=== PATIENT | male | born 1995 | race Caucasian/White ===

== ENCOUNTER 2018-06-30 20:37 | Emergency (ER) | payer OTHER ==
[2018-06-30] MEDS ORDERED: ACETAMINOPHEN TAB 500 MG TAB PO STA (21:55)
[2018-06-30] MEDS ORDERED: predniSONE 20 MG TAB PO STA (21:55)
[2018-06-30 22:24] LABS: Basophils # (A) 0.1 k/uL (0-0.2); Basophils % (A) 1 %; Eosinophils # (A) 0.1 k/uL (0-0.7); Eosinophils % (A) 1 %; HCT 48.1 % (39.0-53.0); HGB 16.5 gm/dL (13.0-17.5); Lymphocytes # (A) 1.7 k/uL (1.0-4.8); Lymphocytes % (A) 13 %; MCH 30.4 pg (25.0-35.0); MCHC 34.3 g/dL (31.0-37.0); MCV 88.6 fL (80.0-100.0); Mean Platelet Volume 8.9; Monocytes # (A) 0.6 k/uL (0-1.0); Monocytes % (A) 5 %; Neutrophils # (A) 10.3 k/uL (1.3-7.7); Neutrophils % (A) 80 %; Platelet Count 211 k/uL (150-450); RBC 5.43 m/uL (4.30-5.90); RDW 11.7 % (11.5-15.5); WBC 12.9 k/uL (3.8-10.6)
[2018-06-30 22:38] LABS: ALT 20 U/L (21-72); AST 20 U/L (17-59); Alkaline Phosphatase 84 U/L (38-126); Anion Gap 13 mmol/L; Blood Urea Nitrogen 15 mg/dL (9-20); Carbon Dioxide 23 mmol/L (22-30); Chloride 105 mmol/L (98-107); Glucose 91 mg/dL (74-99); Potassium 4.2 mmol/L (3.5-5.1); Sodium 141 mmol/L (137-145); Total Bilirubin 1.2 mg/dL (0.2-1.3); Total Protein 8.3 g/dL (6.3-8.2)
--- NOTE | 2018-06-30 22:42 | ED ---
General Adult HPI - General Source: patient, RN notes reviewed Mode of arrival: ambulatory Limitations: no limitations <Alda Malcolm - Last Filed: 07/01/18 00:13> <Gwen Posey - Last Filed: 07/02/18 05:03> - General Chief complaint: Skin/Abscess/Foreign Body Stated complaint: poss allergic reaction Time Seen by Provider: 06/30/18 21:38 - History of Present Illness Initial comments: This is a 22yo male with no PMH who presents today for cc of sore throat x3days and rashx1 . Pt states that 3 days ago he began to notice a sore throat and body aches, he thought it felt similar to when he had strep throat in the past. Yesterday he then began to notice a red rash on this arms, legs, trunk and back. It was rough to the touch, no puritus. Pt denies eating new foods, or beginning a new medication. Pt looked online and thought that he may have scarlet fever so he presented to the emergency department. [facility]. Denies fever, changes in urine color, chest pain, shortness of breath, nodules of the skin, joint pain, headache, nausea, vomiting, diarrhea, recent STD or penile lesion, lesions of the hands or feet or any other symptoms. Remainder of ROS (-). Upon arrival pt VS stable, afebrile. (Alda Malcolm) - Related Data Previous Rx's Medication Instructions Recorded Amoxicillin 500 mg PO Q12HR 10 Days #20 cap 06/30/18 predniSONE 20 mg PO DAILY 4 Days #4 tab 06/30/18 Allergies Allergy/AdvReac Type Severity Reaction Status Date / Time sulfamethoxazole Allergy Rash/Hives Verified 06/30/18 20:55 [From Bactrim] trimethoprim [From Bactrim] Allergy Rash/Hives Verified 06/30/18 20:55 Review of Systems ROS Other: All systems not noted in ROS Statement are negative. Constitutional: Reports: chills. Denies: fever, weakness, night sweats ENT: Reports: throat pain Respiratory: Denies: cough, dyspnea, wheezes, hemoptysis, stridor Cardiovascular: Denies: chest pain, palpitations, orthopnea Gastrointestinal: Denies: abdominal pain, nausea, vomiting, diarrhea, constipation Genitourinary: Denies: urgency, dysuria, frequency, hematuria Musculoskeletal: Reports: myalgia (body aches). Denies: back pain, arthralgia Skin: Reports: as per HPI, rash. Denies: lesions, pruritus Neurological: Denies: headache, weakness, numbness, paresthesias, confusion <Alda Malcolm L - Last Filed: 07/01/18 00:13> ROS Other: All systems not noted in ROS Statement are negative. <Gwen Posey - Last Filed: 07/02/18 05:03> ROS Statement: Those systems with pertinent positive or pertinent negative responses have been documented in the HPI. Past Medical History Past Medical History: No Reported History History of Any Multi-Drug Resistant Organisms: None Reported Past Surgical History: No Surgical Hx Reported Past Psychological History: No Psychological Hx Reported Smoking Status: Current some day smoker Past Alcohol Use History: None Reported Past Drug Use History: None Reported <Alda Malcolm L - Last Filed: 07/01/18 00:13> General Exam Limitations: no limitations <Alda Malcolm - Last Filed: 07/01/18 00:13> <Gwen Posey P - Last Filed: 07/02/18 05:03> - General Exam Comments Initial Comments: General: The patient is awake and alert, in no distress, and does not appear acutely ill. Eye: Pupils are equal, round and reactive to light, extra-ocular movements are intact. No nystagmus. There is normal conjunctiva bilaterally. No signs of icterus. Ears, nose, mouth and throat: There are moist mucous membranes and no oral lesions. Erythematous oropharynx and enlarged erythemarous tonsils with tonsillar exudates and crypts b/l. Uvula midline. No evidence of peritonsillar abscess. No palatel petechiae. Neck: The neck is supple, there is no tenderness or JVD. Mild anterior cervical lymphadenopathy bilaterally. Cardiovascular: There is a regular rate and rhythm. No murmur, rub or gallop is appreciated. Respiratory: Lungs are clear to auscultation, respirations are non-labored, breath sounds are equal. No wheezes, stridor, rales, or rhonchi. Gastrointestinal: Soft, non-distended, non-tender abdomen without masses or organomegaly noted. There is no rebound or guarding present. No Splenomegaly. Bowel sounds are unremarkable. Musculoskeletal: Normal ROM, no tenderness. Strength 5/5. Sensation intact. Pulses equal bilaterally 2+. Neurological: A&O x 3. CN II-XII intact, There are no obvious motor or sensory deficits. Coordination appears grossly intact. Speech is normal. Skin: Skin is warm and dry. Erythematous small 1-2mm papular elevations in diffuse distribution over the arms and leg b/l, trunk and back. No lesions of the palms of hands or soles of feet. Blanchable. Rough to tough, sand paper texture. No subcutaneous nodules palpable. Psychiatric: Cooperative, appropriate mood & affect, normal judgment. (Alda Malcolm) Vital Signs 06/30/18 06/30/18 20:55 23:49 Temperature 98.8 F 98.5 F Pulse Rate 97 78 Respiratory 16 18 Rate Blood Pressure 123/83 122/70 O2 Sat by Pulse 100 98 Oximetry Medical Decision Making - Lab Data Result diagrams: 06/30/18 22:14 06/30/18 22:14 <Alda Malcolm - Last Filed: 07/01/18 00:13> - Lab Data Result diagrams: 06/30/18 22:14 06/30/18 22:14 <Gwen Posey - Last Filed: 07/02/18 05:03> - Medical Decision Making 22 year old male with cc of rash and sore throat concerning for strep pharyngitis with scarlet fever or mononucleosis. Pt denied recent abx use. CBC, CMP, UA, Heterophile and rapid strep obtained. CBC elevated at 12. CMP WNL, UA no evidence of RBC, yellow in color. Strep and heterophile (-). Given physical examination findings, I have concern for strep pharyngitis with scarlet fever. Pt denies any symptoms of respiratory distress and appears non-toxic and comfortable. No signs or symptoms of rheumatic fever or glomerulonephritis at this time. Pt was given 1 dose of prednisone 20mg PO and ibuprofen for odynophagia. Case discussed in detail with Dr. Posey at this time we feel pt has strep pharyngitis with scarlet fever regardles of (-) rapid strep given given that rapid strep testing is not 100% sensitive. Pt will be discharged with close PCP f/u, prednisone and Amoxicillin. Pt was given specific instruction on signs and symptoms of glomerulous nephritis and rheumatic fever and told to return IMMEDIATELY to the emergency department if these symptoms arise OR if rash/symptoms worsen or if he experiences any type of respiratory distress. Pt denies any penile lesions at this time or new sexual partners, he denies concern for STD, because rash spares palms and soles with no STD/penile lesion hx I have lower suspicion for a syphilis eruption at this time. Given pt VS stable with no signs of respiratory distress that pt is stable for discharge. Pt agreed with plan and denied questions. Pt d/c in stable condition. (Alda Malcolm) I was available for consultation in the emergency department. The history and physical exam were done by the midlevel provider. I was consulted for this patient's care. I reviewed the case with the midlevel provider and based on their presentation of the patient, I agree with the assessment, medical decision making and plan of care as documented. (Gwen Posey) - Lab Data Lab Results 06/30/18 06/30/18 06/30/18 Range/Units 21:58 22:14 22:14 WBC 12.9 H (3.8-10.6) k/uL RBC 5.43 (4.30-5.90) m/uL Hgb 16.5 (13.0-17.5) gm/dL Hct 48.1 (39.0-53.0) % MCV 88.6 (80.0-100.0) fL MCH 30.4 (25.0-35.0) pg MCHC 34.3 (31.0-37.0) g/dL RDW 11.7 (11.5-15.5) % Plt Count 211 (150-450) k/uL Neutrophils % 80 % Lymphocytes % 13 % Monocytes % 5 % Eosinophils % 1 % Basophils % 1 % Neutrophils # 10.3 H (1.3-7.7) k/uL Lymphocytes # 1.7 (1.0-4.8) k/uL Monocytes # 0.6 (0-1.0) k/uL Eosinophils # 0.1 (0-0.7) k/uL Basophils # 0.1 (0-0.2) k/uL Sodium 141 (137-145) mmol/L Potassium 4.2 (3.5-5.1) mmol/L Chloride 105 (98-107) mmol/L Carbon Dioxide 23 (22-30) mmol/L Anion Gap 13 mmol/L BUN 15 (9-20) mg/dL Creatinine 1.10 (0.66-1.25) mg/dL Est GFR (CKD-EPI)AfAm >90 (>60 ml/min/1.73 sqM) Est GFR (CKD-EPI)NonAf >90 (>60 ml/min/1.73 sqM) Glucose 91 (74-99) mg/dL Calcium 10.0 (8.4-10.2) mg/dL Total Bilirubin 1.2 (0.2-1.3) mg/dL AST 20 (17-59) U/L ALT 20 L (21-72) U/L Alkaline Phosphatase 84 (38-126) U/L Total Protein 8.3 H (6.3-8.2) g/dL Albumin 5.0 (3.5-5.0) g/dL Urine Color Urine Appearance (Clear) Urine pH (5.0-8.0) Ur Specific [place] (1.001-1.035) Urine Protein (Negative) Urine Glucose (UA) (Negative) Urine Ketones (Negative) Urine Blood (Negative) Urine Nitrite (Negative) Urine Bilirubin (Negative) Urine Urobilinogen (<2.0) mg/dL Ur Leukocyte Esterase (Negative) Urine RBC (0-5) /hpf Urine WBC (0-5) /hpf Urine Mucus (None) /hpf Heterophile Antibody (Negative) Group A Strep Rapid Negative (Negative) 06/30/18 06/30/18 Range/Units 22:14 22:57 WBC (3.8-10.6) k/uL RBC (4.30-5.90) m/uL Hgb (13.0-17.5) gm/dL Hct (39.0-53.0) % MCV (80.0-100.0) fL MCH (25.0-35.0) pg MCHC (31.0-37.0) g/dL RDW (11.5-15.5) % Plt Count (150-450) k/uL Neutrophils % % Lymphocytes % % Monocytes % % Eosinophils % % Basophils % % Neutrophils # (1.3-7.7) k/uL Lymphocytes # (1.0-4.8) k/uL Monocytes # (0-1.0) k/uL Eosinophils # (0-0.7) k/uL Basophils # (0-0.2) k/uL Sodium (137-145) mmol/L Potassium (3.5-5.1) mmol/L Chloride (98-107) mmol/L Carbon Dioxide (22-30) mmol/L Anion Gap mmol/L BUN (9-20) mg/dL Creatinine (0.66-1.25) mg/dL Est GFR (CKD-EPI)AfAm (>60 ml/min/1.73 sqM) Est GFR (CKD-EPI)NonAf (>60 ml/min/1.73 sqM) Glucose (74-99) mg/dL Calcium (8.4-10.2) mg/dL Total Bilirubin (0.2-1.3) mg/dL AST (17-59) U/L ALT (21-72) U/L Alkaline Phosphatase (38-126) U/L Total Protein (6.3-8.2) g/dL Albumin (3.5-5.0) g/dL Urine Color Yellow Urine Appearance Clear (Clear) Urine pH 5.5 (5.0-8.0) Ur Specific [place] 1.027 (1.001-1.035) Urine Protein Trace H (Negative) Urine Glucose (UA) Negative (Negative) Urine Ketones Negative (Negative) Urine Blood Negative (Negative) Urine Nitrite Negative (Negative) Urine Bilirubin Negative (Negative) Urine Urobilinogen <2.0 (<2.0) mg/dL Ur Leukocyte Esterase Trace H (Negative) Urine RBC 3 (0-5) /hpf Urine WBC 7 H (0-5) /hpf Urine Mucus Many H (None) /hpf Heterophile Antibody Negative (Negative) Group A Strep Rapid (Negative) Disposition Is patient prescribed a controlled substance at d/c from ED?: No Time of Disposition: 23:41 <Alda Malcolm L - Last Filed: 07/01/18 00:13> <Gwen Posey - Last Filed: 07/02/18 05:03> Clinical Impression: Strep pharyngitis with scarlet fever Disposition: HOME SELF-CARE Condition: Good Instructions: Strep Throat (ED), Scarlet Fever (ED) Additional Instructions: Please use medication as discussed. Please follow-up with family doctor in the next 24-48 hours for evaluation. Please return to emergency room if the symptoms increase or worsen or for any other concerns, as discussed- if symptoms worsen RETURN TO THE EMERGENCY DEPARTMENT IMMEDIATELY. Prescriptions: Amoxicillin 500 mg PO Q12HR 10 Days #20 cap predniSONE 20 mg PO DAILY 4 Days #4 tab Referrals: None,Stated [Primary Care Provider] - 1-2 days
[2018-06-30 23:18] LABS: Appearance,Urine Clear (Clear); Bilirubin,Urine Negative (Negative); Blood,Urine Negative (Negative); Color,Urine Yellow; Glucose,Urine (UA) Negative (Negative); Ketones,Urine Negative (Negative); Leukocyte Esterase,Urine Trace (Negative); Mucus,Urine Many /hpf; Nitrite,Urine Negative (Negative); PH, Urine 5.5 (5.0-8.0); Protein,Urine Trace (Negative); RBC,Urine 3 /hpf (0-5); Specific Gravity,Urine 1.027 (1.001-1.035); Urobilinogen,Urine <2.0 mg/dL (<2.0); WBC,Urine 7 /hpf (0-5)
[2018-06-30 23:50] VITALS: BP 122/70; PULSE 78; RESP 18; TEMP 98.5
== END 2018-06-30 23:50 | disposition home or self-care (01) ==
LOC: EC 20:37
DX: J02.0 Streptococcal pharyngitis (principal); A38.9 Scarlet fever, uncomplicated; F17.200 Nicotine dependence, unspecified, uncomplicated; Z88.2 Allergy status to sulfonamides
CPT/HCPCS: 36415; 80053; 85025; 86308; 81001; 87081; 87430; 99283; J7512

== ENCOUNTER 2019-03-18 14:31 | Emergency (ER) | payer OTHER ==
[2019-03-18 14:37] VITALS: RESP 16
[2019-03-18 15:21] VITALS: BP 120/77; PULSE 74; TEMP 97.9
--- NOTE | 2019-03-18 15:22 | ED ---
Syncope HPI - General Chief Complaint: Syncope Stated Complaint: Syncopal episodes Time Seen by Provider: 03/18/19 14:42 Source: patient Mode of arrival: ambulatory Limitations: no limitations - History of Present Illness Initial Comments: Patient is 23-year-old male presenting with his father to emergency Department for a possible syncopal episode. 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 Patient states that after the match he was not symptomatically and drove home. Patient states that he does not remember waking up this morning or going to work. Patient states that his coworkers stated that he was "out of it" so he was brought to the emergency department. Patient denies loss of consciousness at the time of incident. Patient reports a throbbing pain on the right trapezius that is exacerbated with left rotation of the head. Patient denies any bruising or bleeding from the head or extremities. Patient denies headache, vomiting, gait instability, disorientation, numbness or tingling to the extremities. Patient denies taking any medication or alcohol. Patient denies any visible trauma to the body. Patient denies possible seizures. Patient denies previous syncopal episodes. Patient denies family history of early with unknown cause. - Related Data Previous Rx's Medication Instructions Recorded Amoxicillin 500 mg PO Q12HR 10 Days #20 cap 06/30/18 predniSONE 20 mg PO DAILY 4 Days #4 tab 06/30/18 Allergies Allergy/AdvReac Type Severity Reaction Status Date / Time azithromycin [From Zithromax] Allergy Unknown Verified 03/18/19 14:37 sulfamethoxazole Allergy Rash/Hives Verified 03/18/19 14:37 [From Bactrim] trimethoprim [From Bactrim] Allergy Rash/Hives Verified 03/18/19 14:37 Review of Systems ROS Statement: Those systems with pertinent positive or pertinent negative responses have been documented in the HPI. ROS Other: All systems not noted in ROS Statement are negative. Past Medical History Past Medical History: No Reported History History of Any Multi-Drug Resistant Organisms: None Reported Past Surgical History: No Surgical Hx Reported Past Psychological History: No Psychological Hx Reported Smoking Status: Current some day smoker Past Alcohol Use History: None Reported Past Drug Use History: None Reported General Exam Limitations: no limitations General appearance: alert, in no apparent distress Head exam: Present: atraumatic, normocephalic, normal inspection Eye exam: Present: normal appearance, PERRL, EOMI. Absent: scleral icterus, conjunctival injection Pupils: Present: normal accommodation ENT exam: Present: normal exam, normal oropharynx, mucous membranes moist, TM's normal bilaterally Neck exam: Present: tenderness (Right trapezius.). Absent: lymphadenopathy Respiratory exam: Present: normal lung sounds bilaterally. Absent: respiratory distress Cardiovascular Exam: Present: regular rate, normal rhythm, normal heart sounds GI/Abdominal exam: Present: soft Extremities exam: Present: normal inspection, full ROM, normal capillary refill, other (+2 radial, ulnar, dorsalis pedis and posterior tibialis pulses. +5 muscle strength in bilateral upper and lower extremities). Absent: tenderness, pedal edema, joint swelling, calf tenderness Back exam: Present: normal inspection, full ROM. Absent: tenderness, CVA tenderness (R), CVA tenderness (L) Neurological exam: Present: alert, oriented X3, normal gait, reflexes normal, other (neuro exam unremarkable.). Absent: motor sensory deficit Psychiatric exam: Present: normal affect, normal mood Skin exam: Present: warm, normal color Course Vital Signs 03/18/19 14:34 Temperature 98.1 F Pulse Rate 67 Respiratory 16 Rate Blood Pressure 129/81 O2 Sat by Pulse 100 Oximetry EKG Findings - EKG Comments: EKG Findings:: Ventricular rate 65, TX interval 164. QRS duration 88, QT/QTc 354/368, PRT axes 74 55 43 Medical Decision Making - Medical Decision Making is a 23-year-old male presenting to emergency Department with a possible syncopal episode. Based on physical examination I believe the patient is is experiencing postconcussive symptoms. EKG was negative for arrhythmias. According to the [place] [facility] head rule patient does not that the criteria for computed tomography scan. The option to computed tomography scan is brain is a spine were discussed with both the father and patient. They decided to not get a computed tomography scan and will monitor patient home. Strict return parameters were discussed for returning to the emergency department. There were also advised to follow up primary care. Case discussed with physician. Disposition Clinical Impression: Postoperative confusion Disposition: HOME SELF-CARE Condition: Stable Additional Instructions: Parents advised to monitor patient or Keyshawn week. Patient advised to follow up primary care. Please return to emergency return to the emergency department if symptoms worsen. Is patient prescribed a controlled substance at d/c from ED?: No Referrals: Coretta Lawson III, MD [Primary Care Provider] - 1-2 days Time of Disposition: 15:40
== END 2019-03-18 16:05 | disposition home or self-care (01) ==
LOC: EC 14:31
DX: R41.3 Other amnesia (principal); M25.511 Pain in right shoulder; F17.200 Nicotine dependence, unspecified, uncomplicated; Z88.1 Allergy status to other antibiotic agents; Z88.2 Allergy status to sulfonamides; W22.8XXA Striking against or struck by other objects, initial encounter; Y93.72 Activity, wrestling
CPT/HCPCS: 93005; 99284

== ENCOUNTER → 2022-11-30 | Outpatient (CLI) | payer OTHER ==
--- NOTE | 2022-12-01 06:44 | MR ---
EXAMINATION TYPE: MR knee RT wo con DATE OF EXAM: 11/30/2022 COMPARISON: NONE HISTORY: Right knee in her pain with locking and swelling after injury 2 months ago. TECHNIQUE: Multiplanar, multisequence images of the knee is performed without IV contrast. FINDINGS: MEDIAL MENISCUS: Anterior and posterior horns are intact without tear. LATERAL MENISCUS: Anterior and posterior horns are intact without tear. CRUCIATE LIGAMENTS: The anterior and posterior cruciate ligaments are intact and unremarkable. COLLATERAL LIGAMENTS: The medial collateral ligament and lateral collateral ligament complex are inta ct and unremarkable. EXTENSOR MECHANISM: Visualized quadriceps and patellar tendons are intact. EFFUSION: No significant suprapatellar joint effusion. POPLITEAL CYST: No popliteal/chauhan cyst. TRICOMPARTMENT SPACES: Tricompartment joint spaces are maintained. No significant spurring is seen. CARTILAGE: Tricompartment articular cartilage is preserved. BONE MARROW SIGNAL: No focal abnormal marrow signal is appreciated. OTHER: No additional significant abnormality is appreciated. IMPRESSION: No meniscal or ligamentous tear is seen.
== END | disposition home or self-care (01) ==
LOC: RADMRIMAIN 13:18
PROVIDERS: ATTEND Orthopaedic Surgery
DX: M25.561 Pain in right knee (principal)